=== PATIENT | female | born 1985 | race Caucasian/White ===

== ENCOUNTER 2019-06-23 18:05 | Emergency (ER) | payer OTHER ==
[2019-06-23] MEDS ORDERED: PROGLYCEM PO (18:39)
[2019-06-23] MEDS ORDERED: BRIVIACT PO (18:39)
[2019-06-23] MEDS ORDERED: ONFI2.5 MG/1 M PO (18:40)
[2019-06-23] MEDS ORDERED: RISPERDAL1 MG PO (18:41)
== END 2019-06-23 19:18 | disposition home or self-care (01) ==
LOC: ED 18:05
DX: S93.401A Sprain of unspecified ligament of right ankle, initial encounter (principal); X50.1XXA Overexertion from prolonged static or awkward postures, initial encounter
CPT/HCPCS: 73610; 99283-25

== ENCOUNTER 2019-07-15 17:31 | Emergency (ER) | payer MEDICAID ==
[~2019-07-15] VITALS: Ht 157.5 cm; Wt 65.8 kg
[~2019-07-15 17:31] MED LIST: BRIVIACT PO; ONFI2.5 MG/1 M PO; PROGLYCEM PO; RISPERDAL1 MG PO
--- OUTSIDE RECORDS SUMMARY | 2019-07-15 17:34 | XMS ---
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 Reinaldo VISIT COUNT (12 MO.) [address] [place] [address] [address] [place] [address] TOTAL 6 NOTE: Visits indicate total known visits. ED/UCC VISIT TRACKING (12 MO.) 07/15/2019 17:32 [facility] TYPE: Emergency COMPLAINT: - SORE THROAT, EAR PAIN 06/23/2019 18:06 [facility] TYPE: Emergency COMPLAINT: - FOOT/HIP PAIN DIAGNOSES: - Overexertion from prolonged static or awkward postures, init - Pain in right ankle and joints of right foot - Sprain of unspecified ligament of right ankle, init encntr 03/27/2019 19:13 [facility] TYPE: Emergency DIAGNOSES: - Other specified health status - Peg Tube Replacement - triage 10/28/2018 02:10 [facility] TYPE: Emergency DIAGNOSES: - Cough - triage-labored breathing - Hypoxemia - Pneumonia, unspecified organism 10/22/2018 23:07 [facility] TYPE: Emergency DIAGNOSES: - TRIAGE - Peg Tube Problem - Flu due to unidentified influenza virus w oth resp manifest - Cellulitis of abdominal wall - Flu like symptoms 08/19/2018 02:54 [facility] TYPE: Emergency DIAGNOSES: - triage-peg tube lose - G-tube problem - Gastrostomy status INPATIENT VISIT TRACKING (12 MO.) 10/28/2018 02:10 [facility] TYPE: Medical Surgical DIAGNOSES: - Hypoxemia - Pneumonia, unspecified organism [email or web address]
[2019-07-15] MEDS ORDERED: ONFI2.5 MG/1 M PO (19:35)
[2019-07-15] MEDS ORDERED: VALIUM5 MG PO (19:36)
[2019-07-15] MEDS ORDERED: CEPHALEXIN500 MG PO (20:20)
== END 2019-07-15 20:39 | disposition home or self-care (01) ==
LOC: ED 17:31
DX: H65.91 Unspecified nonsuppurative otitis media, right ear (principal); J98.8 Other specified respiratory disorders; B97.89 Other viral agents as the cause of diseases classified elsewhere; G40.909 Epilepsy, unspecified, not intractable, without status epilepticus; Z88.8 Allergy status to other drugs, medicaments and biological substances; Z79.899 Other long term (current) drug therapy
CPT/HCPCS: 99282